=== PATIENT | female | born 1975 ===

== ENCOUNTER 2016-12-03 12:01 | Inpatient (IN) | payer OTHER ==
[2016-12-03 13:20] LABS: BASO # 0.1 K/uL (0.0-0.2); BASO % 0.5 % (0.0-2.0); EOS # 0.1 K/uL (0.0-0.7); EOS % 0.4 % (0.0-4.0); HEMOGLOBIN 12.6 g/dL (12.0-16.0); LYMPH % 5.8 % (20.0-40.0); MEAN CELL VOLUME 91.5 fl (81.0-99.0); MEAN CORPUSCULAR HEMOGLOBIN 30.5 pg (27.0-31.0); MEAN CORPUSCULAR HGB CONC 33.3 g/dL (33.0-37.0); MEAN PLATELET VOLUME 9.6 fl (7.2-11.7); MONO # 1.2 K/uL (0.0-0.8); MONO % 6.7 % (0.0-10.0); NEUT % 86.6 % (50.0-75.0); PLATELET COUNT 215 K/uL (130-400); RBC 4.12 Mil/uL (3.80-5.20); RED CELL DISTRIBUTION WIDTH 12.5 % (11.5-14.5); WHITE BLOOD COUNT 17.3 K/uL (4.8-10.8)
[2016-12-03 13:27] LABS: ALB/GLOB RATIO 1.2 (1.0-2.1); ALBUMIN 4.5 g/dL (3.5-5.0); ALT/SGPT 29 U/L (9-52); AST/SGOT 30 U/L (14-36); BLOOD UREA NITROGEN 9 mg/dl (7-17); CALCIUM 9.8 mg/dL (8.4-10.2); GFR AFRICAN-AMERICAN > 60; GFR NON-AFRICAN AMERICAN > 60; LIPASE 24 U/L (23-300)
[2016-12-03 14:00] LABS: BASOPHIL 1 % (0-2); EOSINOPHIL 4 % (0-7); LYMPHOCYTE 11 % (20-50); MONOCYTE 6 % (0-10); NEUTROPHIL 70 % (42-75); PLATELET ESTIMATE SLIGHTLY INCREASED (NORMAL); REACTIVE LYMPHOCYTES 8 % (0-0); TOTAL CELLS COUNTED 100
--- NOTE | 2016-12-03 15:45 | US ---
HISTORY: RUQ pain, nausea COMPARISON: None. TECHNIQUE: Sonographic evaluation of the right upper quadrant of the abdomen. FINDINGS: LIVER: Measures 14.7 cm in length. Normal echogenicity of the liver parenchyma. No mass. No intrahepatic bile duct dilatation. GALLBLADDER: Unremarkable. No gallstones. No mural thickening. Negative sonographic Tiwrai sign. COMMON BILE DUCT: Measures 2 mm. No stones. No dilatation. PANCREAS: Unremarkable as visualized. No mass. No ductal dilatation. RIGHT KIDNEY: Measures 11.4 cm in length. Normal echogenicity. No calculus, mass, or hydronephrosis. AORTA: No aneurysmal dilatation. IVC: Unremarkable. OTHER FINDINGS: None . IMPRESSION: No evidence of cholelithiasis or cholecystitis. Unremarkable examination.
--- NOTE | 2016-12-03 15:48 | ED PDOC ---
HPI: Abdomen Time Seen by Provider: 12/03/16 12:14 Chief Complaint (Nursing): Abdominal Pain Chief Complaint (Provider): RUQ pain History Per: Patient History/Exam Limitations: no limitations Onset/Duration Of Symptoms: Days Outside of [place] travel?: No Current Symptoms Are (Timing): Still Present Location Of Pain/Discomfort: RUQ Associated Symptoms: Fever, Chills, Nausea Additional Complaint(s): Pt reports abdominal pain for 3 days. PT states the first 2 days it was upper but nor diffuse. PT states today she was having severe stabbing, RUQ pain with nausea. Pain non-radiating. Pt states she has been unable to eat. Pt did not take any medications at home. PT has not had similar symptoms in the past. Past Medical History Reviewed: Historical Data, Nursing Documentation, Vital Signs Vital Signs: Last Vital Signs Temp 100.8 F H 12/03/16 15:47 Pulse 95 H 12/03/16 12:13 Resp 20 12/03/16 12:13 BP 128/89 12/03/16 12:13 Pulse Ox 100 12/03/16 19:48 - Medical History PMH: No Chronic Diseases - Surgical History Surgical History: No Surg Hx - Family History Family History: States: No Known Family Hx - Living Arrangements Living Arrangements: With Family - Social History Current smoker - smoking cessation education provided: No Alcohol: None Drugs: Denies - Allergies Allergies/Adverse Reactions: Allergies Allergy/AdvReac Type Severity Reaction Status Date / Time No Known Allergies Allergy Verified 12/03/16 12:13 Review of Systems ROS Statement: Except As Marked, All Systems Reviewed And Found Negative Constitutional: Positive for: Chills Gastrointestinal: Positive for: Nausea, Vomiting, Abdominal Pain. Negative for : Diarrhea Physical Exam - Reviewed Nursing Documentation Reviewed: Yes Vital Signs Reviewed: Yes - Physical Exam Appears: Positive for: Well, Non-toxic, No Acute Distress Head Exam: Positive for: ATRAUMATIC, NORMAL INSPECTION, NORMOCEPHALIC Skin: Positive for: Normal Color, Warm, DRY Eye Exam: Positive for: Normal appearance ENT: Positive for: Normal ENT Inspection Neck: Positive for: Normal, Painless ROM Cardiovascular/Chest: Positive for: Regular Rate, Rhythm Respiratory: Positive for: Normal Breath Sounds. Negative for: Accessory Muscle Use, Respiratory Distress Gastrointestinal/Abdominal: Positive for: Bowel Sounds, Soft, Tenderness (RUQ), Rebound. Negative for: Normal Exam Back: Positive for: Normal Inspection Extremity: Positive for: Normal ROM Neurologic/Psych: Positive for: Alert, Oriented - Laboratory Results Result Diagrams: 12/03/16 13:05 12/03/16 13:05 - ECG O2 Sat by Pulse Oximetry: 100 Medical Decision Making Medical Decision Makin - Pt placed in ED OB 1610 - Pt with fever and GB normal. CT ordered. Lactate pending. Dr. Terrazas aware of admission. ED OBSERVATION Date of observation admission: 12/03/16 Time of observation admission: 14:40 - Observation admission statement Patient is being placed in observation because:: Fever, elevated WBC, GB normal - CT pending - Goals of Observation Goals of observation are:: r.o appendicitis - Progress Note Progress Note: 12/03/16 16:40 Pt in bed. Reports improvement after morphine IV. Disposition - Clinical Impression Clinical Impression: Pyelonephritis, SIRS (systemic inflammatory response syndrome) - Patient ED Disposition Is Patient to be Admitted: No Counseled Patient/Family Regarding: Diagnosis, Need For Followup - Disposition Disposition: Routine/Home Disposition Time: 19:51 Condition: GOOD - Pt Status Changed To: Hospital Disposition Of: Inpatient - Admit Certification Admit to Inpatient:: After my assessment, the patient will require hospitalization for at least two midnights. This is because of the severity of symptoms shown, intensity of services needed, and/or the medical risk in this patient being treated as an outpatient. - POA Present On Arrival: None
[2016-12-03] MEDS ORDERED: Iohexol 240 (50 ml) PO STA (16:07)
[2016-12-03] MEDS ORDERED: Iohexol 240 (50 ml) ONE (16:24)
[2016-12-03] MEDS ORDERED: Iohexol 300 100 ML IJ ONE (18:49)
[2016-12-03] MEDS ORDERED: Sodium Chloride 0.9% 50 ML IV ONE (18:49)
[2016-12-03] MEDS ORDERED: Sodium Chloride 0.9% 1,000 ML IV STA (19:49)
[2016-12-03 20:13] LABS: VENOUS BLOOD GAS BASE EXCESS 0.6 mmol/L (0.0-2.0); VENOUS BLOOD GAS PCO2 52 mmHg (40-60); VENOUS BLOOD GAS PO2 17 mm/Hg (30-55); VENOUS BLOOD PH 7.33 (7.32-7.43)
[2016-12-03 20:36] LABS: SQUAMOUS EPITHIAL 1 /hpf (0-5); URINE BILIRUBIN NEGATIVE (NEGATIVE); URINE BLOOD MODERATE (NEGATIVE); URINE CLARITY CLEAR (Clear); URINE COLOR YELLOW (YELLOW); URINE GLUCOSE (UA) NEG (Normal); URINE LEUKOCYTE ESTERASE SMALL Leu/uL (Negative); URINE NITRATE NEGATIVE (NEGATIVE); URINE PROTEIN 30 mg/dL (NEGATIVE); URINE UROBILINOGEN 0.2-1.0 mg/dL (0.2-1.0)
[2016-12-03] MEDS ORDERED: cefTRIAXone (Rocephin) 1 gm Inj ONE (20:56)
--- NOTE | 2016-12-03 21:46 | CP.PCM.HP ---
History of Present Illness - History of Present Illness History of Present Illness: CC: RUQ pain, f/n/v HPI: This is a a 41 y/o female with no chronic medical conditions who comes in with 3+ days of R sided abdominal pain, f/c/n and v. She denies dysuria per se or blood in urine. Nothing seems to make the symptoms better, but overall symptoms became worse over last few days. ROS: 14 pt. ROS negative other than HPI MHx: None SHx: x 2 Allergies: NKDA Medications: None Family Hx: Reviewed, no relevant findings Social Hx: Lives with family, no tobacco, no EtOH Present on Admission - Present on Admission Any Indicators Present on Admission: No Past Patient History - Past Social History Alcohol: None Drugs: Denies - PSYCHIATRIC Hx Substance Use: No - SURGICAL HISTORY Hx Section: Yes - ANESTHESIA Hx Anesthesia: Yes Hx Anesthesia Reactions: No Meds Allergies/Adverse Reactions: Allergies Allergy/AdvReac Type Severity Reaction Status Date / Time No Known Allergies Allergy Verified 12/03/16 12:13 Physical Exam - Constitutional Appears: Toxic - Head Exam Head Exam: ATRAUMATIC, NORMOCEPHALIC - Eye Exam Eye Exam: EOMI, PERRL - ENT Exam ENT Exam: Mucous Membranes Dry - Neck Exam Neck exam: Positive for: Full Rom - Respiratory Exam Respiratory Exam: NORMAL BREATHING PATTERN - Cardiovascular Exam Cardiovascular Exam: REGULAR RHYTHM, +S1, +S2 - GI/Abdominal Exam GI & Abdominal Exam: Normal Bowel Sounds, Soft, Tenderness Additional comments: RLQ tenderness, R flank tenderness - Extremities Exam Extremities exam: Positive for: full ROM, normal inspection - Neurological Exam Neurological exam: Alert, CN II-XII Intact, Oriented x3 - Psychiatric Exam Psychiatric exam: Normal Affect, Normal Mood - Skin Skin Exam: Dry, Warm Results - Vital Signs Recent Vital Signs: Last Vital Signs Temp 100.8 F H 12/03/16 15:47 Pulse 95 H 12/03/16 12:13 Resp 20 12/03/16 12:13 BP 128/89 12/03/16 12:13 Pulse Ox 100 12/03/16 19:51 - Labs Result Diagrams: 12/03/16 13:05 12/03/16 13:05 Labs: Laboratory Results - last 24 hr 12/03/16 12/03/16 20:10 20:23 pO2 17 L VBG pH 7.33 VBG pCO2 52 VBG HCO3 23.3 VBG Total CO2 29.0 H VBG O2 Sat (Calc) 25.9 L VBG Base Excess 0.6 VBG Potassium 3.9 Sodium 131.0 L Chloride 98.0 Glucose 88 Lactate 1.1 FiO2 21.0 Venous Blood Potassium 3.9 Urine Color Yellow Urine Clarity Clear Urine pH 6.0 Ur Specific [place] > 1.060 H Urine Protein 30 Urine Glucose (UA) Neg Urine Ketones 80 Urine Blood Moderate Urine Nitrate Negative Urine Bilirubin Negative Urine Urobilinogen 0.2-1.0 Ur Leukocyte Esterase Small Urine RBC (Auto) 11 H Urine Microscopic WBC 18 H Ur Squamous Epith Cells 1 Assessment & Plan (1) Pyelonephritis Assessment and Plan: 41 y/o female with sepsis 2/2 to pyelonephritis. -Continue ceftriaxone 1 g daily IV -Pain control as per scale -Zofran IV for nausea -Cont IVF -f/u cultures -SCDs for DVT PPx for now Status: Acute (2) SIRS (systemic inflammatory response syndrome) Status: Acute (3) DVT prophylaxis Status: Acute
[2016-12-04] MEDS: Sodium Chloride 0.9% 1,000 ML IV SCH ×4 (00:13→16:29)
[2016-12-04] MEDS ORDERED: Sodium Chloride 0.9% 1,000 ML IV SCH (00:15)
[2016-12-04] MEDS: Morphine 4 MG/ML VIAL IVP PRN ×3 (03:16→23:17)
[2016-12-04 07:51] LABS: HEMOGLOBIN 10.2 g/dL (12.0-16.0); MEAN CELL VOLUME 91.3 fl (81.0-99.0); MEAN CORPUSCULAR HEMOGLOBIN 31.2 pg (27.0-31.0); MEAN CORPUSCULAR HGB CONC 34.1 g/dL (33.0-37.0); RBC 3.28 Mil/uL (3.80-5.20); RED CELL DISTRIBUTION WIDTH 12.5 % (11.5-14.5); WHITE BLOOD COUNT 13.2 K/uL (4.8-10.8)
[2016-12-04 08:15] LABS: BLOOD UREA NITROGEN 7 mg/dl (7-17); CALCIUM 7.8 mg/dL (8.4-10.2)
[2016-12-04 09:04] LABS: GFR AFRICAN-AMERICAN > 60; GFR NON-AFRICAN AMERICAN > 60
--- NOTE | 2016-12-04 09:41 | CP.PCM.PN ---
Subjective - Date & Time of Evaluation Date of Evaluation: 12/04/16 Time of Evaluation: 09:30 - Subjective Subjective: seen examined bedside continues to complain of some pain uriating normally HD stable no other complaints NAD Objective - Vital Signs/Intake and Output Vital Signs (last 24 hours): Temp Pulse Resp BP Pulse Ox 99.7 F H 96 H 20 104/67 98 12/04/16 08:03 12/04/16 08:03 12/04/16 08:03 12/04/16 08:03 12/04/16 08:03 Intake and Output: 12/04/16 12/04/16 06:59 18:59 Intake Total 2300 Balance 2300 - Medications Medications: Current Medications Acetaminophen (Tylenol 325mg Tab) 650 mg PO Q6 PRN PRN Reason: Pain, Mild (1-3) Last Admin: 12/03/16 23:17 Dose: 650 mg Ceftriaxone Sodium 1 gm/ (Sodium Chloride) 100 mls @ 100 mls/hr IVPB DAILY GE Sodium Chloride (Sodium Chloride 0.9%) 1,000 mls @ 100 mls/hr IV .Q10H GE Stop: 12/04/16 16:59 Last Admin: 12/04/16 00:13 Dose: 100 mls/hr Ketorolac Tromethamine (Toradol) 15 mg IVP Q6 PRN PRN Reason: Pain, moderate (4-7) Last Admin: 12/03/16 21:57 Dose: 15 mg Morphine Sulfate (Morphine) 2 mg IVP Q4 PRN PRN Reason: Pain, severe (8-10) Last Admin: 12/04/16 03:16 Dose: 2 mg Ondansetron HCl (Zofran Inj) 4 mg IVP Q6 PRN PRN Reason: Nausea/Vomiting Tramadol HCl (Ultram) 50 mg PO Q6 PRN PRN Reason: Pain, moderate (4-7) - Labs Labs: 12/04/16 05:20 12/04/16 05:20 - Constitutional Appears: Non-toxic, No Acute Distress - Head Exam Head Exam: ATRAUMATIC, NORMOCEPHALIC - Eye Exam Eye Exam: EOMI, Normal appearance, PERRL Pupil Exam: NORMAL ACCOMODATION - ENT Exam ENT Exam: Mucous Membranes Moist, Normal Oropharynx - Neck Exam Neck Exam: Full ROM, Normal Inspection - Respiratory Exam Respiratory Exam: Clear to Ausculation Bilateral, NORMAL BREATHING PATTERN - Cardiovascular Exam Cardiovascular Exam: RRR, +S1, +S2 - GI/Abdominal Exam GI & Abdominal Exam: Soft, Normal Bowel Sounds. absent: Mass, Organomegaly - Extremities Exam Extremities Exam: Normal Capillary Refill. absent: Calf Tenderness - Back Exam Back Exam: absent: CVA tenderness (L), CVA tenderness (R) - Neurological Exam Neurological Exam: Alert, Awake, Oriented x3 - Psychiatric Exam Psychiatric exam: Normal Affect, Normal Mood - Skin Skin Exam: Dry, Normal Color, Warm Assessment and Plan - Assessment and Plan (Free Text) Plan: 41 y/o female with no chronic medical conditions who comes in with 3+ days of R sided abdominal pain, f/c/n and v. She denies dysuria per se or blood in urine. Nothing seems to make the symptoms better, but overall symptoms became worse over last few days. CT ABD PEL: report per [facility] R sided pyelonephritis Sepsis 2/2 Pyelonephritis On admission patient had fever 101.8, tachycardic 102, WBC 17.3, now sepsis resolved. HD stable CT ABD PEL: report per [facility] R sided pyelonephritis -Continue ceftriaxone 1 g daily IV -Pain control as per scale -Zofran IV for nausea -Cont IVF -f/u cultures DVT prophylaxis -SCDs for DVT PPx for now
--- NOTE | 2016-12-04 09:55 | CT ---
PROCEDURE: CT Abdomen and Pelvis with contrast HISTORY: Left sided abdominal pain, US normal, fever COMPARISON: Limited abdomen ultrasound examination 12/03/2016, preliminary. TECHNIQUE: Contrast dose: Omnipaque 300, 90 cc. Radiation dose: Total exam DLP = 282 mGy-cm. This CT exam was performed using one or more of the following dose reduction techniques: Automated exposure control, adjustment of the mA and/or kV according to patient size, and/or use of iterative reconstruction technique. FINDINGS: LOWER THORAX: Unremarkable. LIVER: Unremarkable. No gross lesion or ductal dilatation. GALLBLADDER AND BILE DUCTS: Unremarkable. PANCREAS: Unremarkable. No gross lesion or ductal dilatation. SPLEEN: Unremarkable. ADRENALS: Unremarkable. No mass. KIDNEYS AND URETERS: A straight right renal nephrogram is appreciated suspicious for pyelonephritis. Trace right para renal reaction extends in the right pericolic gutter and limited fluid is seen in the pelvis. No similar pattern is seen the left kidney however clinical correlation advised unless. VASCULATURE: Unremarkable. No aortic aneurysm. BOWEL: Mildly prominent fecal loading may indicate an element of constipation however there is no bowel obstruction appreciated including small and large bowel. APPENDIX: Normal appendix. PERITONEUM: Unremarkable. No free fluid. No free air. LYMPH NODES: Unremarkable. No enlarged lymph nodes. BLADDER: Unremarkable. REPRODUCTIVE: Collapsing follicular cyst left mm adnexal compartment. BONES: No acute fracture. OTHER FINDINGS: None. IMPRESSION: Findings most compatible with right-sided pyelonephritis. No similar finding is seen the left side. Clinically correlate further. Other etiologies may cause this nephrogram appearance. Collapsing follicle left adnexal compartment.
[2016-12-05 00:10] VITALS: RESP 20
[2016-12-05 07:47] VITALS: BP 110/72; PULSE 77; TEMP 98.8
[2016-12-05 08:13] LABS: GFR AFRICAN-AMERICAN > 60; GFR NON-AFRICAN AMERICAN > 60
[2016-12-05 08:33] LABS: BLOOD UREA NITROGEN 2 mg/dl (7-17)
[2016-12-05 08:55] LABS: BASO % 0.3 % (0.0-2.0); EOS # 0.1 K/uL (0.0-0.7); EOS % 0.8 % (0.0-4.0); HEMOGLOBIN 9.8 g/dL (12.0-16.0); LYMPH # 0.9 K/uL (1.0-4.3); MEAN CELL VOLUME 91.6 fl (81.0-99.0); MEAN CORPUSCULAR HEMOGLOBIN 30.6 pg (27.0-31.0); MEAN CORPUSCULAR HGB CONC 33.4 g/dL (33.0-37.0); MEAN PLATELET VOLUME 10.2 fl (7.2-11.7); MONO # 0.8 K/uL (0.0-0.8); MONO % 10.5 % (0.0-10.0); NEUT # 6.1 K/uL (1.8-7.0); NEUT % 77.4 % (50.0-75.0); RBC 3.21 Mil/uL (3.80-5.20); RED CELL DISTRIBUTION WIDTH 12.8 % (11.5-14.5); WHITE BLOOD COUNT 7.9 K/uL (4.8-10.8)
--- NOTE | 2016-12-05 10:02 | CP.PCM.DIS ---
Provider - Provider Date of Admission: 12/04/16 11:08 Attending physician: Veronica Terrazas MD Time Spent in preparation of Discharge (in minutes): 30 Hospital Course - Lab Results Lab Results: Most Recent Lab Values WBC 7.9 K/uL (4.8-10.8) 12/05/16 06:30 RBC 3.21 Mil/uL (3.80-5.20) L 12/05/16 06:30 Hgb 9.8 g/dL (12.0-16.0) L 12/05/16 06:30 Hct 29.4 % (34.0-47.0) L 12/05/16 06:30 MCV 91.6 fl (81.0-99.0) 12/05/16 06:30 MCH 30.6 pg (27.0-31.0) 12/05/16 06:30 MCHC 33.4 g/dL (33.0-37.0) 12/05/16 06:30 RDW 12.8 % (11.5-14.5) 12/05/16 06:30 Plt Count 171 K/uL (130-400) 12/05/16 06:30 MPV 10.2 fl (7.2-11.7) 12/05/16 06:30 Neut % (Auto) 77.4 % (50.0-75.0) H 12/05/16 06:30 Lymph % (Auto) 11.0 % (20.0-40.0) L 12/05/16 06:30 [place] % (Auto) 10.5 % (0.0-10.0) H 12/05/16 06:30 Eos % (Auto) 0.8 % (0.0-4.0) 12/05/16 06:30 Baso % (Auto) 0.3 % (0.0-2.0) 12/05/16 06:30 Neut # 6.1 K/uL (1.8-7.0) 12/05/16 06:30 Lymph # 0.9 K/uL (1.0-4.3) L 12/05/16 06:30 [place] # 0.8 K/uL (0.0-0.8) 12/05/16 06:30 Eos # 0.1 K/uL (0.0-0.7) 12/05/16 06:30 Baso # 0.0 K/uL (0.0-0.2) 12/05/16 06:30 Neutrophils % (Manual) 70 % (42-75) 12/03/16 13:05 Lymphocytes % (Manual) 11 % (20-50) L 12/03/16 13:05 Reactive Lymphs % 8 % (0-0) H 12/03/16 13:05 Monocytes % (Manual) 6 % (0-10) 12/03/16 13:05 Eosinophils % (Manual) 4 % (0-7) 12/03/16 13:05 Basophils % (Manual) 1 % (0-2) 12/03/16 13:05 Platelet Estimate Slightly increased (NORMAL) H 12/03/16 13:05 RBC Morphology Normal (NORMAL) 12/03/16 13:05 pO2 17 mm/Hg (30-55) L 12/03/16 20:10 VBG pH 7.33 (7.32-7.43) 12/03/16 20:10 VBG pCO2 52 mmHg (40-60) 12/03/16 20:10 VBG HCO3 23.3 mmol/L 12/03/16 20:10 VBG Total CO2 29.0 mmol/L (22-28) H 12/03/16 20:10 VBG O2 Sat (Calc) 25.9 % (40-65) L 12/03/16 20:10 VBG Base Excess 0.6 mmol/L (0.0-2.0) 12/03/16 20:10 VBG Potassium 3.9 mmol/L (3.6-5.2) 12/03/16 20:10 Sodium 131.0 mmol/L (132-148) L 12/03/16 20:10 Chloride 98.0 mmol/L (98-107) 12/03/16 20:10 Glucose 88 mg/dL (65-105) 12/03/16 20:10 Lactate 1.1 mmol/L (0.7-2.1) 12/03/16 20:10 FiO2 21.0 % 12/03/16 20:10 Sodium 137 mmol/l (132-148) 12/05/16 06:30 Potassium 3.4 MMOL/L (3.6-5.0) L 12/05/16 06:30 Chloride 110 mmol/L (98-107) H 12/05/16 06:30 Carbon Dioxide 22 mmol/L (22-30) 12/05/16 06:30 Anion Gap 8 (10-20) L 12/05/16 06:30 BUN 2 mg/dl (7-17) L 12/05/16 06:30 Creatinine 0.5 mg/dL (0.7-1.2) L 12/05/16 06:30 Est GFR ( Amer) > 60 12/05/16 06:30 Est GFR (Non-Af Amer) > 60 12/05/16 06:30 Random Glucose 96 mg/dL (65-105) 12/05/16 06:30 Calcium 8.0 mg/dL (8.4-10.2) L 12/05/16 06:30 Total Bilirubin 1.8 mg/dl (0.2-1.3) H 12/03/16 13:05 AST 30 U/L (14-36) 12/03/16 13:05 ALT 29 U/L (9-52) 12/03/16 13:05 Alkaline Phosphatase 64 U/L (38-126) 12/03/16 13:05 Total Protein 8.1 G/DL (6.3-8.2) 12/03/16 13:05 Albumin 4.5 g/dL (3.5-5.0) 12/03/16 13:05 Globulin 3.6 gm/dL (2.2-3.9) 12/03/16 13:05 Albumin/Globulin Ratio 1.2 (1.0-2.1) 12/03/16 13:05 Lipase 24 U/L (23-300) 12/03/16 13:05 Venous Blood Potassium 3.9 mmol/L (3.6-5.2) 12/03/16 20:10 Urine Color Yellow (YELLOW) 12/03/16 20:23 Urine Clarity Clear (Clear) 12/03/16 20:23 Urine pH 6.0 (5.0-8.0) 12/03/16 20:23 Ur Specific [place] > 1.060 (1.003-1.030) H 12/03/16 20:23 Urine Protein 30 mg/dL (NEGATIVE) 07/24/17 20:23 Urine Glucose (UA) Neg mg/dL (Normal) 12/03/16 20:23 Urine Ketones 80 mg/dL (NEGATIVE) 12/03/16 20:23 Urine Blood Moderate (NEGATIVE) 12/03/16 20:23 Urine Nitrate Negative (NEGATIVE) 12/03/16 20:23 Urine Bilirubin Negative (NEGATIVE) 12/03/16 20:23 Urine Urobilinogen 0.2-1.0 mg/dL (0.2-1.0) 12/03/16 20:23 Ur Leukocyte Esterase Small [place]/uL (Negative) 12/03/16 20:23 Urine RBC (Auto) 11 /hpf (0-3) H 12/03/16 20:23 Urine Microscopic WBC 18 /hpf (0-5) H 12/03/16 20:23 Ur Squamous Epith Cells 1 /hpf (0-5) 12/03/16 20:23 - Hospital Course Hospital Course: 41 y/o female with no chronic medical conditions who comes in with 3+ days of R sided abdominal pain, f/c/n and v. She denies dysuria per se or blood in urine. Nothing seems to make the symptoms better, but overall symptoms became worse over last few days. CT ABD PEL: report per [facility] R sided pyelonephritis Sepsis 2/2 Pyelonephritis On admission patient had fever 101.8, tachycardic 102, WBC 17.3, now sepsis resolved. HD stable WHITE COUNT NORMALIZED, AFEBRILE OVER 24 HOURS. D/C HOME WITH PO CIPRO IN STABLE CONDITION AND FOLLOW UP WITH PCP. CT ABD PEL: report per [facility] R sided pyelonephritis -Continue ceftriaxone 1 g daily IV -Pain control as per scale -Zofran IV for nausea -Cont IVF -f/u cultures DVT prophylaxis -SCDs for DVT PPx for now Discharge Exam - Head Exam Head Exam: ATRAUMATIC, NORMOCEPHALIC - Eye Exam Eye Exam: EOMI, Normal appearance, PERRL Pupil Exam: NORMAL ACCOMODATION - ENT Exam ENT Exam: Mucous Membranes Moist, Normal Oropharynx - Neck Exam Neck exam: Full Rom, Normal Inspection - Respiratory Exam Respiratory Exam: Clear to PA & Lateral, NORMAL BREATHING PATTERN - Cardiovascular Exam Cardiovascular Exam: RRR, +S1, +S2 - GI/Abdominal Exam GI & Abdominal Exam: Normal Bowel Sounds, Soft. absent: Tenderness - Extremities Exam Extremities exam: normal capillary refill, pedal pulses present - Back Exam Back exam: absent: CVA tenderness (L), CVA tenderness (R) - Neurological Exam Neurological exam: Alert, Oriented x3 - Psychiatric Exam Psychiatric exam: Normal Affect, Normal Mood - Skin Skin Exam: Dry, Warm Discharge Plan - Discharge Medications Prescriptions: Ciprofloxacin [Cipro] 500 mg PO Q12 #10 tab - Follow Up Plan Condition: GOOD Disposition: HOME/ ROUTINE Instructions: Acute Pyelonephritis (DC), Acute Nausea and Vomiting (DC), Acute Abdominal Pain (DC) Referrals: [facility] [place] [Outside]
[2016-12-05 11:15] VITALS: O2SAT 95
== END 2016-12-05 12:45 | disposition home or self-care (01) | DRG 901 ==
LOC: H.ER 12:01 → H.EROBSV 15:09 → H.ERHOLD 20:55 → H.MEDSURG1 12-04 01:00 → OBSVTOIN 12-04 11:08
PROVIDERS: ADMIT Internal Medicine; ATTEND Internal Medicine
DX: A41.9 Sepsis, unspecified organism (principal); N10 Acute pyelonephritis; B96.20 Unspecified Escherichia coli [E. coli] as the cause of diseases classified elsewhere